=== PATIENT | male | born 1980 | race Two or more races ===

== ENCOUNTER 2024-08-06 18:11 | Emergency (ER) | payer OTHER ==
[~2024-08-06] VITALS: Ht 182.9 cm; Wt 120.0 kg
[2024-08-06 19:22] VITALS: BP 122/74; PULSE 55; RESP 14; TEMP 98.2; O2SAT 99
[2024-08-06] MEDS: LORazepam 2 MG/ML VIAL IVP ONE (22:47)
[2024-08-06] MEDS: ACETAMINOPHEN 500 MG TABLET PO ONE (22:47)
[2024-08-06] MEDS: KETOROLAC TROMETHAMINE 30 MG/ML VIAL IVP ONE (22:49)
[2024-08-06] MEDS: METHOCARBAMOL 100 MG/ML 10 ML VIAL IVP ONE (22:50)
== END 2024-08-06 23:54 ==
LOC: EMS 18:11
DX: S30.0XXA Contusion of lower back and pelvis, initial encounter (principal); Z88.0 Allergy status to penicillin; W19.XXXA Unspecified fall, initial encounter; Y93.E5 Activity, floor mopping and cleaning; Y92.89 Other specified places as the place of occurrence of the external cause; Y99.8 Other external cause status
CPT/HCPCS: 99284; 96374; 96375; 72100; 72220; J1885; J2060; J2800